=== PATIENT | male | born 1960 | race Caucasian/White ===

== ENCOUNTER 2021-11-13 20:46 | Emergency (ER) | payer MEDICAID ==
[~2021-11-13] VITALS: Ht 180.3 cm; Wt 115.2 kg
[2021-11-13 21:12] VITALS: BP 163/109
--- NOTE | 2021-11-13 21:18 | NUR ---
PT [facility]. TAKEN TO BED 3
--- NOTE | 2021-11-13 21:18 | NUR ---
patient biba from home for respiratory distress. started today. patient states smoking all day and feels phlegm in the lungs and throat. patient on 6L on non rebreather per EMS. normally has albuterol but does not have any more available. auscultated lungs-- diminished throughout, crackles throughout, and wheezing on the luq expiratory. AAOx4. denies n/v/d. pmh: copd, htn, low back surgery, pacemaker, depression nka
--- NOTE | 2021-11-13 21:25 | NUR ---
placed patient on 2L NC for comfort and patient desaturating to 91% with feelings of "something backed up in the back of the throat like phlegm"
[2021-11-13 22:21] LABS: BASOPHILS # (AUTO) 0.1 K/uL (0.00-0.22); BASOPHILS % (AUTO) 0.6 % (0.0-2.0); EOSINOPHILS # (AUTO) 0.3 K/uL (0-0.4); EOSINOPHILS % (AUTO) 2.6 % (0.0-4.0); HEMATOCRIT 43.4 % (36-52); HEMOGLOBIN 15.2 g/dL (12.0-18.0); LYMPHOCYTES # (AUTO) 0.9 K/uL (2.0-11.5); LYMPHOCYTES % (AUTO) 8.5 % (20.5-51.1); MEAN CORPUSCULAR HEMOGLOBIN 31 pg (27-31); MEAN CORPUSCULAR HGB CONC 35 g/dL (33-37); MEAN CORPUSCULAR VOLUME 88.7 fL (80-94); MONOCYTES # (AUTO) 0.6 K/uL (0.8-1.0); MONOCYTES % (AUTO) 6.2 % (1.7-9.3); NEUTROPHILS # (AUTO) 8.3 K/uL (1.8-7.7); NEUTROPHILS % (AUTO) 82.1 % (42.2-75.2); PLATELET COUNT (AUTO) 168 K/uL (140-450); RED BLOOD CELL COUNT(AUTO) 4.89 MIL/uL (4.20-6.10); RED CELL DISTRIBUTION WIDTH 14.7 % (11.6-13.7); WHITE BLOOD COUNT (AUTO) 10.1 K/uL (4.8-10.8)
[2021-11-13 23:00] LABS: ALBUMIN 3.9 g/dL (3.4-5.0); CARBON DIOXIDE 21.4 mmol/L (21-32); CREATININE 1.3 mg/dL (0.6-1.3); POTASSIUM 4.4 mmol/L (3.5-5.1); TOTAL BILIRUBIN 0.7 mg/dL (0.0-1.0)
[2021-11-13] MEDS ORDERED: ALBUTEROL SULFATE/IPRATROPIU 3 ML SOL IH ONE (23:10)
[2021-11-13] MEDS ORDERED: FUROSEMIDE 40 MG/4 ML VIAL IVP ONE (23:10)
[2021-11-13] MEDS ORDERED: LORazepam 2 MG/ML VIAL IVP ONE (23:10)
[2021-11-13] MEDS ORDERED: methylPREDNISolone SS 125 MG/2 ML VIAL IVP ONE (23:10)
--- NOTE | 2021-11-14 01:00 | NUR ---
PT LYING IN BED, STATES "I FEEL BETTER". PT SATING 95% ON ROOM AIR. EQUAL RISE AND FALL OF CHEST. NO ACUTE DISTRESS AT THIS TIME.
[2021-11-14] MEDS ORDERED: ALBU0.0912 IH (01:29)
[2021-11-14] MEDS ORDERED: FURO-570 PO (01:29)
[2021-11-14] MEDS ORDERED: HYDR-635 PO (01:29)
[2021-11-14 02:12] VITALS: BP 142/72
--- NOTE | 2021-11-14 02:14 | NUR ---
Patient discharged with v/s stable. Written and verbal after care instructions given and explained. Patient alert, oriented and verbalized understanding of instructions. Ambulatory with steady gait. All questions addressed prior to discharge. ID band removed. Patient advised to follow up with PMD. Rx of LASIX, HYDROXYZINE, PROVENTIL given. Patient educated on indication of medication including possible reaction and side effects. Opportunity to ask questions provided and answered.
== END 2021-11-14 02:14 | disposition home or self-care (01) ==
LOC: MED 20:46
DX: J44.1 Chronic obstructive pulmonary disease with (acute) exacerbation (principal); Z20.822 Contact with and (suspected) exposure to COVID-19; I50.9 Heart failure, unspecified; I11.0 Hypertensive heart disease with heart failure; F41.9 Anxiety disorder, unspecified; Z95.0 Presence of cardiac pacemaker; Z79.899 Other long term (current) drug therapy
CPT/HCPCS: 36415; 71045; 80053; 83880; 84484; 85025; 87426; 93005; 94640; 94760; 96374; 96375; 99285; J1940; J2060; J2930; Q0092